=== PATIENT | male | born 1950 | race Caucasian/White ===

== ENCOUNTER → 2023-09-07 11:26 | Outpatient (CLI) | payer MEDICARE, OTHER, SELFPAY ==
--- NOTE | ~2023-09-07 | XR_ITS ---
Clinical Indication: Chronic cough PA and lateral views of the chest: Comparison: None Findings: The lungs are clear, without evidence of focal consolidation or pleural effusion. Cardiome diastinal silhouette is borderline prominent. Bones and soft tissues are unremarkable. Impression: Clear lungs Reviewed, dictated and finalized at [facility]. [employer] Impression: Clear lungs
== END ==
PROVIDERS: PCP Nurse Practitioner Family; Visit Provider Nurse Practitioner Family
DX: R05.3 Chronic cough (principal)
CPT/HCPCS: 71046